=== PATIENT | female | born 1970 | race Caucasian/White ===

== ENCOUNTER → 2022-04-17 17:09 | Outpatient (CLI) | payer OTHER, SELFPAY ==
--- NOTE | ~2022-04-17 | XR_ITS ---
Lumbosacral Spine: AP and lateral views Clinical History: Pain Findings: There is anterior and posterior fusion hardware from L5 to S1 with fusion across the disc s paces well. There is minimal degenerative disc change at the remaining intervertebral disc spaces. Gr natalie 1 retrolisthesis of L1 over L2 noted. The sacroiliac joints are normally outlined. Impression: Anterior and posterior fusion from L5 to S1. Grade 1 retrolisthesis of L1 over L2. Reviewed, dictated and finalized at location M. LOGY NURSE Impression: Anterior and posterior fusion from L5 to S1. Grade 1 retrolisthesis of L1 over L2.
== END ==
DX: M54.50 Low back pain, unspecified (principal); Z98.1 Arthrodesis status
CPT/HCPCS: 72100